=== PATIENT | male | born 1960 | race Caucasian/White ===

== ENCOUNTER 2016-11-21 01:04 | Emergency (ER) | payer BC ==
[~2016-11-21] VITALS: Ht 177.8 cm; Wt 113.0 kg
[2016-11-21 01:06] VITALS: BP 143/73; PULSE 67; RESP 18; TEMP 98; O2SAT 97
[2016-11-21] MEDS ORDERED: CYCLOBENZAPRINE HCL 10 MG TAB PO ONE (03:15)
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
[2016-11-21] MEDS ORDERED: NAPR500 PO (03:16)
[2016-11-21] MEDS ORDERED: CYCL1TAB29 PO (03:16)
== END 2016-11-21 03:23 | disposition home or self-care (01) ==
LOC: NEPB 01:04
DX: M54.9 Dorsalgia, unspecified (principal); Z79.82 Long term (current) use of aspirin
CPT/HCPCS: 99283